=== PATIENT | male | born 1995 | race Caucasian/White ===

== ENCOUNTER 2016-12-28 17:56 | Emergency (ER) | payer OTHER ==
[~2016-12-28] VITALS: Ht 182.9 cm; Wt 94.8 kg
[2016-12-28 18:03] VITALS: TEMP 37.1; Ht 182.9 cm; Wt 94.8 kg
[2016-12-28] MEDS ORDERED: ASPI325T39 PO (18:21)
--- NOTE | 2016-12-28 19:20 | DIAGNOSTIC IMAGING REPORT ---
LEFT KNEE 3 VIEWS HISTORY: posterior L knee pain COMPARISON: None. FINDINGS: There is no fracture or dislocation. Soft tissues are unremarkable. No radiopaque foreign bodies. No significant knee effusion. IMPRESSION: Unremarkable left knee. Electronically signed by: Juan Banerjee M.D. 12/28/2016 7:18 PM Dictated Date/Time: 12/28/2016 7:17 PM
--- NOTE | 2016-12-28 19:55 | DIAGNOSTIC IMAGING REPORT ---
LEFT LOWER EXTREMITY VENOUS DOPPLER HISTORY: L posterior knee pain COMPARISON STUDY: None. FINDINGS: There is occlusive thrombus seen within the left superficial femoral vein, popliteal vein, and left calf veins. The left common femoral vein is patent. IMPRESSION: Extensive occlusive DVT within the left lower extremity as described above. Electronically signed by: Juan Banerjee M.D. 12/28/2016 7:54 PM Dictated Date/Time: 12/28/2016 7:53 PM
[2016-12-28 21:05] LABS: BASO % 0.3 %; BASO ABS # 0.02 K/uL (0-0.2); COMPLETE YES; EOS % 1.9 %; HEMATOCRIT 42.8 % (42-52); IG% 0.1 %; LYMPH % 26.6 %; LYMPH ABS # 1.96 K/uL (1.2-3.4); MEAN CORPUSCULAR HEMOGLOBIN 30.5 pg (25-34); MEAN PLATELET VOLUME 8.6 fL (7.4-10.4); MONO % 8.7 %; NEUT % 62.4 %; PLATELET COUNT 182 K/uL (130-400); RED BLOOD COUNT 4.92 M/uL (4.7-6.1); WHITE BLOOD COUNT 7.36 K/uL (4.8-10.8)
[2016-12-28 21:15] LABS: PROTHROMBIN TIME (PATIENT) 10.7 SECONDS (9.0-12.0)
[2016-12-28 21:26] LABS: BUN/CREATININE RATIO 12.3 (10-20); CALCIUM 9.5 mg/dl (8.5-10.1); CREATININE 1.1 mg/dl (0.60-1.40); POTASSIUM 3.8 mmol/L (3.5-5.1)
[2016-12-28] MEDS ORDERED: NORCO 5/325MG HOME PACK PO ONE (22:00)
[2016-12-28] MEDS ORDERED: HYDR-5688 PO (22:02)
[2016-12-28] MEDS ORDERED: XRL10 PO (22:02)
[2016-12-28 22:26] VITALS: BP 143/69; PULSE 79; O2SAT 98
--- NOTE | 2016-12-29 01:34 | EMERGENCY ROOM VISIT NOTE ---
ED Visit Note First contact with patient: 18:10 Chief Complaint: Left calf pain and swelling. History of Present Illness: Mr. Eubanks is a 21-year-old white male who ambulates into the ED complaining of posterior left calf pain and swelling. Historically patient has a left upper extremity DVT from 2 years ago. Patient reports approximately 2 weeks ago he was playing softball and was struck in the left calf. He reports for approximately one week he had some mild pain in the area of the posterior distal thigh, posterior knee and posterior proximal lower leg. Initially it was mild but has gradually increased in intensity. He reports at rest he has a mild pressure sensation, with ambulation he reports he feels the areas filling with fluid and after resting with ambulation and becomes sharp. He rates his discomfort 6/10. The pain is nonradiating. An additional 2 ambulation and palpation of his areas of pain increases his discomfort. He has not identified any alleviating factors related to the pain. He reports he took aspirin the last 2 days without relief of his discomfort. Associated with his discomfort he feels like the whole left lower leg is swollen. He denies any fevers, chills, sweats, skin eruptions, skin color changes, upper respiratory tract symptoms, cough, wheezing, shortness of breath, palpitations, chest pain/discomfort, orthopnea, decreased appetite, abdominal pain, lower extremity weakness/numbness/tingling. Review of Systems: As noted above in history of present illness.8 body systems were reviewed and found to be negative as noted above. Past Medical History: As previously noted. Current Medications: Patient denies. Allergies to Medications: Patient denies. Social History: Patient is currently University student; he feels safe in his home environment; he denies tobacco and admits to alcohol use. Physical Examination: Vital Signs: Date Time Temp Pulse Resp B/P (MAP) Pulse Ox O2 Delivery O2 Flow Rate FiO2 12/28/16 22:26 79 18 143/69 98 Room Air 12/28/16 20:43 74 16 149/84 100 Room Air 12/28/16 18:03 37.1 58 18 157/82 98 Room Air GENERAL: 21-year-old male in mild to moderate distress due to pain, nontoxic- appearing, afebrile and hemodynamically stable. NEUROLOGICAL: Awake, alert and oriented to person, place and time. Answering questions appropriately and following commands. SKIN: Warm, dry and pink. No soft tissue eruptions or trauma noted. THORAX: Lungs sounds are clear to auscultation and equal bilaterally with symmetrical chest wall. No wheezing, rales or rhonchi. No crepitus, tenderness , subcutaneous air or deformities noted. HEART: Regular rate and rhythm. No gallops, rubs or murmurs are appreciated. ABDOMEN: Flat, soft and nontender. Positive bowel sounds in all quadrants. No guarding, rigidity or organomegaly. LEFT LOWER EXTREMITY: No gross bony deformity. No shortening or malrotation. No tenderness in the hip, ankle or foot. Mild tenderness over the posterior aspect of the proximal thigh, the popliteal area and the proximal aspect of the gastrocnemius. There is mild swelling in this area but I was not able to appreciate any cords. The lower leg does appear slightly larger than the right. Throughout the leg the skin was warm and pink and capillary refill is brisk. Slight decreased range of motion in knee due to pain to approximately 100 of flexion but he had full extension of the knee. Full range of motion at the level of the ankle and the toes. Throughout the lower leg the skin was warm and pink and capillary refill is brisk. Distal pulses were present. He was able to distinguish light sensations through all dermatomes. ED Course: Patient is assessed as noted above. Patient's medication list was reviewed. Left Knee X-Rays: Were read by myself and the radiologist showing no acute fractures, dislocations or joint effusions. Left Lower Extremity Venous Doppler Ultrasound: Was reviewed by myself and read by the radiologist showing an occlusive thrombus within the left superficial femoral vein, popliteal vein and left calf veins; left common femoral vein is patent. Patient's case was reviewed with Dr. Mills; we agreed on diagnostic approach, treatment, disposition and plan. Patient was given 15 mg of Xarelto by mouth. Patient was educated on walker use. Patient was educated about today's findings and instructed on his treatment plan ; he verbalizes understanding and agreement with this plan. Clinical Impression: Occlusive of thrombus left lower extremity. Decision-Making: Initially my differential diagnosis I considered hamstring muscle strain, gastrocnemius muscle strain, Achilles rupture, DVT, knee sprain and other causes. Disposition: Patient discharged home in stable condition; prior to departure he was reassessed and subjectively reported he was feeling better and rated his discomfort 4/10. Plan: Comfort measures were discussed with the patient including rest, sliding pain scale of acetaminophen, [place]; appropriate narcotic precautions were discussed with the patient and his name was checked in the state database and no red flags were noted. Patient was prescribed Xarelto 15 mg 2 times a day for 20 days. 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 Patient was encouraged return ED sooner for worsening pain, chest pain, palpitations, shortness of breath, fevers or any new/concerning symptoms.
[2016-12-29] MEDS ORDERED: RIVAROXABAN TAB 15 MG TAB PO ONE (09:00)
--- NOTE | 2016-12-29 16:55 | Pharmacy Progress Note ---
ED Pharmacist Progress Note Date of Service: Dec 29, 2016. Patient called stating that the [facility] not have xarelto. He asked for it to be sent to [facility] in [place], [place]. I called this pharmacy and was able to get them to transfer the RX from [facility] at the patient's request. I did inform the patient however, that the norco prescription would need to still be filled at the [facility] given its controlled status and the fact that the writing provider was not available at that time.
== END 2016-12-28 22:28 | disposition home or self-care (01) ==
LOC: C.EDB 17:58 → C.EDD 22:28
DX: I82.812 Embolism and thrombosis of superficial veins of left lower extremity (principal); Z86.718 Personal history of other venous thrombosis and embolism